=== PATIENT | male | born 2000 | race Caucasian/White ===

== ENCOUNTER 2019-02-21 21:16 | Emergency (ER) | payer OTHER ==
--- NOTE | 2019-02-21 23:08 | ED ---
Laceration/Wound HPI - HPI Summary HPI Summary: The patient is a 18 y/o M presenting to [facility] with a chief complaint of laceration to the right thumb tonight. He reports that he was preparing food when he cut the finger with a knife. He has controlled the active bleeding with compression but states that there is a constant sharp throbbing pain in the thumb, rated 6/10 in severity. He denies any numbness in the thumb. No PMHx. Nonsmoker, no EtOH, no substance use. Medications and allergies reviewed. - History of Current Complaint Stated Complaint: FINGER LACERATION PER PT Time Seen by Provider: 02/21/19 23:01 Hx Obtained From: Patient Onset/Duration: Sudden Onset, Lasting Hours, Still Present Aggravating: Nothing Alleviating: Compression Timing: Constant Onset Severity: Moderate Current Severity: Moderate Pain Intensity: 6 Pain Scale Used: 0-10 Numeric Associated Signs & Symptoms: Pain - Allergy/Home Medications Allergies/Adverse Reactions: Allergies Allergy/AdvReac Type Severity Reaction Status Date / Time No Known Allergies Allergy Verified 02/21/19 21:25 Home Medications: Home Medications NK [No Home Medications Reported] 02/22/19 [History Confirmed 02/22/19] PMH/Surg Hx/FS Hx/Imm Hx Endocrine/Hematology History: Denies: Hx Diabetes Respiratory History: Denies: Hx Asthma Sensory History: Reports: Hx Contacts or Glasses Opthamlomology History: Reports: Hx Contacts or Glasses EENT History: Denies: Hx Deafness - Surgical History Surgical History: None Surgery Procedure, Year, and Place: none Infectious Disease History: No Infectious Disease History: Reports: Traveled Outside the [place] in Last 30 Days - Family History Known Family History: Negative: Diabetes - Social History Occupation: Student Alcohol Use: None Hx Substance Use: No Substance Use Type: Reports: None Hx Tobacco Use: No Smoking Status (MU): Never Smoked Tobacco Review of Systems Positive: Other - laceration to the right thumb Negative: Numbness All Other Systems Reviewed And Are Negative: Yes Physical Exam - Summary Physical Exam Summary: Appearance: Well-appearing, Well-nourished, lying in bed comfortable Skin: 2cm laceration on the right thumb, Warm, dry, no obvious rash Eyes: sclera anicteric, no conjunctival pallor ENT: mucous membranes moist Neck: deferred Respiratory: No signs of respiratory distress Cardiovascular: Appears well perfused, pulses are nml Abdomen: deferred Musculoskeletal: Moving all 4 extremities without obvious discomfort Neurological: Awake and alert, mentation is normal, speech is fluent and appropriate Psychiatric: affect is normal, does not appear anxious or depressed Triage Information Reviewed: Yes Vital Signs On Initial Exam: Initial Vitals Temp Pulse Resp BP Pulse Ox 98.7 F 75 17 125/90 100 02/21/19 21:24 02/21/19 21:24 02/21/19 21:24 02/21/19 21:24 02/21/19 21:24 Vital Signs Reviewed: Yes Procedures - Laceration/Wound Repair 1 Location: Other - right thumb Description: Linear Anesthesia: Digital, 2.0%, Lido, Epi Length, Depth and Shape: 2cm Laceration/Wound Explored: Other - irrigated with tapwater Suture Type: Nylon - 4-0 Number of Sutures: 3 Diagnostics - Vital Signs Vital Signs Temp Pulse Resp BP Pulse Ox 02/21/19 21:24 98.7 F 75 17 125/90 100 - Laboratory Lab Statement: Any lab studies that have been ordered have been reviewed, and results considered in the medical decision making process. Re-Evaluation - Re-Evaluation First Eval Re-Evaluation Time: 00:00 Comment: Laceration repaired (see note). Discharge plan discussed. Laceration Repair Course/Dx - Course Course Of Treatment: Patient is a 18 y/o M with cc of laceration to the right thumb following use of knife for food preparation tonight with sharp and throbbing pain with applied pressure to the area. Upon physical exam, the patient exhibits a 2cm laceration on the right thumb. Digital anesthetic lidocaine/epinephrine 2% applied to right hand for preparation of suture placement as dermabond was applied but was not able to fully close the wound. Laceration was irrigated with tapwater and repaired with three 4-0 nylon sutures. Patient understands and agrees discharge plan for suture removal in 7- 10 days. - Clinical Impression Provider Diagnoses: Laceration of right thumb Discharge ED - Sign-Out/Discharge Documenting (check all that apply): Patient Departure - Patient will be discharged home. Patient Received Moderate/Deep Sedation with Procedure: No - Discharge Plan Condition: Good Disposition: HOME Patient Education Materials: Care For Your Stitches (ED), Finger Laceration (ED ) Referrals: [facility] [Provider Group] - 7 Days Additional Instructions: Follow with [facility] for removal of the stitches in 7-10 days. Return to the emergency department for any new or worsening symptoms. - Billing Disposition and Condition Condition: GOOD Disposition: Home - Attestation Statements Document Initiated by Karley: Yes Documenting Scribe: Therese Resendez Provider For Whom Karley is Documenting (Include Credential): Dr. Marty Starks MD Scribe Attestation: ITherese scribed for Dr. Marty Starks MD on 02/22/19 at 0534. Scribe Documentation Reviewed: Yes Provider Attestation: The documentation as recorded by the Therese ghotra accurately reflects the service I personally performed and the decisions made by me, Dr. Marty Starks MD Status of Scribe Document: Viewed
[2019-02-21] MEDS ORDERED: Lidocaine 2% EPI 1:200000 MPF* 10 ML VIAL INJ ONE (23:09)
[2019-02-21] MEDS ORDERED: Lidocaine 2% w/ EPI 1:200,000* 20 ML SDV VIAL ONE (23:13)
[2019-02-21] MEDS ORDERED: Lidocaine 2% w/ EPI 1:200,000* 20 ML SDV VIAL INJ ONE (23:45)
[2019-02-22 00:24] VITALS: BP 125/71
== END 2019-02-22 00:23 | disposition home or self-care (01) ==
LOC: ED 21:16
DX: S61.011A Laceration without foreign body of right thumb without damage to nail, initial encounter (principal); W26.0XXA Contact with knife, initial encounter; Y93.G1 Activity, food preparation and clean up; Y92.9 Unspecified place or not applicable
CPT/HCPCS: 12001; 99282